=== PATIENT | male | born 1945 | race Caucasian/White ===

== ENCOUNTER → 2019-08-09 | Outpatient (CLI) | payer MEDICARE | END | disposition home or self-care (01) | LOC: PLD 11:46 → LAB SHORT 11:46 | DX: D48.5 Neoplasm of uncertain behavior of skin (principal) | CPT/HCPCS: 88305 ==

== ENCOUNTER 2019-11-26 12:50 | Inpatient (IN) | payer OTHER, MEDICARE ==
[~2019-11-26] VITALS: Ht 177.8 cm; Wt 95.2 kg
[2019-11-26 13:56] LABS: BASOPHILS ABSOLUTE AUTO 0.04 K/mm3 (0.00-0.23); BASOPHILS PERCENT AUTO 0 % (0-2); EOSINOPHILS ABSOLUTE AUTO 0.03 K/mm3 (0.00-0.68); EOSINOPHILS PERCENT AUTO 0 % (0-6); Hematocrit 33.7 % (37.0-53.0); Hemoglobin 11.2 g/dL (13.5-17.5); IMMATURE GRAN ABSOLUTE AUTO 0.27 K/mm3 (0.00-0.10); IMMATURE GRAN PERCENT AUTO 1 % (0-1); LYMPHOCYTES ABSOLUTE AUTO 0.34 K/mm3 (0.84-5.20); LYMPHOCYTES PERCENT AUTO 2 % (21-46); MONOCYTES ABSOLUTE AUTO 1.05 K/mm3 (0.16-1.47); MONOCYTES PERCENT AUTO 5 % (4-13); Mean Corpuscular HGB 32.6 pg (26.0-34.0); Mean Corpuscular HGB Conc 33.2 g/dL (31.5-36.5); Mean Corpuscular Volume 98 fL (80-100); Mean Platelet Volume 10.5 fL (9.1-12.4); NEUTROPHILS ABSOLUTE AUTO 19.68 K/mm3 (1.96-9.15); NEUTROPHILS PERCENT AUTO 92 % (41-73); Platelet Count 181 K/mm3 (150-400); RDW Coefficient Variation 15.6 % (11.7-14.2); RDW Standard Deviation 56.8 fL (35.1-46.3); Red Blood Cell Count 3.44 M/mm3 (4.30-5.90); White Blood Cell Count 21.41 K/mm3 (4.00-11.30)
[2019-11-26 14:12] LABS: Albumin, Blood 3.9 g/dL (3.4-5.0); Albumin/Globulin Ratio 0.7 (0.8-1.8); Bilirubin, Total 0.6 mg/dL (0.1-1.0); Bun/Creatinine Ratio 14.1 (12.0-20.0); Creatinine, Blood 3.83 mg/dL (0.60-1.20); Globulin, Blood 5.4 g/dL (2.2-4.0); Potassium, Blood 4.4 mmol/L (3.5-5.5); Total Protein, Blood 9.3 g/dL (6.4-8.2)
[2019-11-26 14:36] LABS: Source, Urine Clean Catch
[2019-11-26 14:49] LABS: Appearance, Urine Hazy (Clear); Bilirubin, Urine Neg (Neg); Blood, Urine 3+ (Neg); Color, Urine Yellow (P-Yellow); Glucose Qualitative, Urine Neg (Neg); Ketones, Urine Neg (Neg); Leukocyte Esterase, Urine 1+ (Neg); Nitrite, Urine Neg (Neg); Protein, Urine 3+ (Neg); Urobilinogen, Urine NORM (Normal)
[2019-11-26 15:11] LABS: Amorphous Light (0-Heavy); Bacteria Mod /hpf; Hyaline Casts 0-2 /lpf (0-2); Squamous Epithelial Cells Few /hpf (Few)
[2019-11-26] MEDS ORDERED: AMLODIPINE BESY10 MG PO (15:27)
[2019-11-26] MEDS ORDERED: Paxil20 MG PO (15:28)
[2019-11-26 15:29] LABS: Influenza A Negative (NEGATIVE); Influenza B Negative (NEGATIVE)
[2019-11-26] MEDS ORDERED: ATOR40TA PO (15:53)
[2019-11-26] MEDS ORDERED: LISI20 PO (15:53)
[2019-11-26] MEDS ORDERED: LAMO100 PO (15:54)
[2019-11-26] MEDS ORDERED: GABA300 PO (15:54)
[2019-11-26] MEDS ORDERED: BENADRYL25 MG PO (15:55)
[2019-11-26] MEDS ORDERED: [UNRECOGNIZED DRUG - REMARK] PO (15:55)
--- NOTE | 2019-11-27 03:44 | NUR ---
RECEIVED CALL FROM LAB STATING BLOOD CULTURES POSITIVE FOR GRAM + COCCI IN CHAINS. CALL PLACED TO LAB TO VERIFY ADEQUATE ANTIBIOTIC COVERAGE. SPOKE WITH PHARMACIST EBER WHO STATED ROCEPHIN IS SUFFICIENT FOR NOW UNTIL MD'S REVIEW IN THE AM.
[2019-11-27 05:14] LABS: Hematocrit 27.9 % (37.0-53.0); Hemoglobin 9.4 g/dL (13.5-17.5); Mean Corpuscular HGB Conc 33.7 g/dL (31.5-36.5); Mean Corpuscular Volume 98 fL (80-100); Mean Platelet Volume 10.6 fL (9.1-12.4); Platelet Count 151 K/mm3 (150-400); RDW Coefficient Variation 15.7 % (11.7-14.2); RDW Standard Deviation 56.5 fL (35.1-46.3); Red Blood Cell Count 2.85 M/mm3 (4.30-5.90); White Blood Cell Count 16.17 K/mm3 (4.00-11.30)
[2019-11-27 05:30] LABS: Bun/Creatinine Ratio 15.5 (12.0-20.0); Calcium, Blood 8.4 mg/dL (8.5-10.1); Creatinine, Blood 3.16 mg/dL (0.60-1.20); Potassium, Blood 4.2 mmol/L (3.5-5.5)
--- NOTE | 2019-11-27 05:56 | NUR ---
SHIFT SUMMARY: FEBRILE TEMP DOWN TO 100.4 FROM 102 AFTER TYLENOL, ICE WATER, AND ICE PACK TO NECK. REPORTS LESS TREMORING BUT CONTINUED GENERALIZED WEAKNESS. HAVING DIFFICULTY BRINGING WATER TO MOUTH AND MANAGING PLACEMENT OF URINAL INDEPENDENTLY. PAIN TO BACK, NECK, AND KNEE RESPONDING WELL TO PRN FENTANYL. STATES PT'S VERBALIZATIONS ARE SOMETIMES NON-SENSICAL- NOT HIS BASELINE. WILL CONT TO MONITOR.
--- NOTE | 2019-11-27 13:14 | NUR ---
Patient and patient's gave permission for care tomorrow.
--- NOTE | 2019-11-27 18:29 | NUR ---
SHIFT SUMMARY- PT ALERT AND ORIENTED TO SELF AND FAMILY. PT OCCASSIONALLY SPEAKS IN NON-SENSICAL SPEACH PATTERNS. PT SAT AT THE EOB WITH OT AND RN THEN HE TIPPED TO THE LEFT AND SAID HE WILL STAND UP WHEN HE WAS READY BUT HE "NEEDED TO TAKE HIS TIME AND GO SLOW." PT REMAINED IN THAT POSITION FOR THE NEXT SEVERAL MINUTES SAYING "YOU SEE I FEEL LIKE I SHOULD BE ABLE TO CONTROL MYSELF BUT I DON'T HAVE CONTROL." PT SEEMED TO BE HAVING LEFT SIDED WEAKNESS INCLUDING THE TRUNK MUSCLES. PT HAS HAD PAIN T/O THE DAY. HOME DOSE OF GABAPENTIN AND TRAMADOL WERE ORDERED AND DOSE WAS ADJUSTED FOR THE PT RENAL FUNCTION. ICE HAS BEEN APPLIED TO THE PT LOWER BACK SEVERAL TIMES AND IT SEEMS TO BE HELPING. PT HAS RUN A LOW GRADE TEMP THAT WAS REDUCED TO 100.1 WITH TYLENOL AND BLANKET REMOVAL. SPOKE TO DR CAMARILLO ABOUT SOME BRUISES ON THE PT INNER THIGH THAT WERE NOT NOTED ON THE ASSESSMENT THIS MORNING, THE BRUISES ARE FAINT AND THE PT SPOUSE DENIES ANY FALL AT HOME. A SMALL BRUISE LATER NOTED ON THE OUTSIDE OF THE PT RIGHT THIGH WELL. PER DR AYON BRUISES (LIGHT IN COLOR BUT VISIBLE) WERE OUTLINED IN MARKER SO THAT STAFF CAN MONITOR THEM FOR CHANGE IN SIZE OR COLOR. PT SPOUSE IS VERY INVOLVED IN HIS CARE AND HAS ACCESS TO ALL OF HIS CLINICAL TRIAL INFORMATION WELL HIS [facility] MEDICAL RECORDS. PT CURRENTLY ADMITTED FOR A UTI. SPOUSE ASKS QUESTIONS AND ASSISTS THE PT WITH THE URINAL. SPOUSE IS AT THE BEDSIDE ROUND THE CLOCK.
[2019-11-28 05:50] LABS: BASOPHILS ABSOLUTE AUTO 0.05 K/mm3 (0.00-0.23); BASOPHILS PERCENT AUTO 0 % (0-2); Hematocrit 31.2 % (37.0-53.0); Hemoglobin 10.1 g/dL (13.5-17.5); LYMPHOCYTES ABSOLUTE AUTO 0.87 K/mm3 (0.84-5.20); LYMPHOCYTES PERCENT AUTO 7 % (21-46); MONOCYTES ABSOLUTE AUTO 0.95 K/mm3 (0.16-1.47); MONOCYTES PERCENT AUTO 8 % (4-13); Mean Corpuscular HGB 31.9 pg (26.0-34.0); Mean Corpuscular HGB Conc 32.4 g/dL (31.5-36.5); Mean Corpuscular Volume 98 fL (80-100); Mean Platelet Volume 10.4 fL (9.1-12.4); Platelet Count 167 K/mm3 (150-400); RDW Coefficient Variation 15.6 % (11.7-14.2); RDW Standard Deviation 56.8 fL (35.1-46.3); Red Blood Cell Count 3.17 M/mm3 (4.30-5.90); White Blood Cell Count 12.36 K/mm3 (4.00-11.30)
[2019-11-28 05:53] LABS: EOSINOPHILS ABSOLUTE AUTO 0.06 K/mm3 (0.00-0.68); EOSINOPHILS PERCENT AUTO 1 % (0-6); IMMATURE GRAN ABSOLUTE AUTO 0.04 K/mm3 (0.00-0.10); IMMATURE GRAN PERCENT AUTO 0 % (0-1); NEUTROPHILS ABSOLUTE AUTO 10.39 K/mm3 (1.96-9.15); NEUTROPHILS PERCENT AUTO 84 % (41-73)
[2019-11-28 06:13] LABS: Albumin, Blood 3.5 g/dL (3.4-5.0); Anion Gap 5 mmol/L (6-16); Blood Urea Nitrogen 34 mg/dL (8-24); Bun/Creatinine Ratio 14.5 (12.0-20.0); CO2, Blood 24 mmol/L (21-32); Chloride, Blood 109 mmol/L (98-108); Creatinine, Blood 2.34 mg/dL (0.60-1.20); Glomerular Filtration Rate 29 (60-); Glucose, Blood 92 mg/dL (70-99); Phosphorus, Blood 2.4 mg/dL (2.5-4.9); Potassium, Blood 3.9 mmol/L (3.5-5.5); Sodium, Blood 138 mmol/L (136-145); Vancomycin, Random 10.2 ug/mL
--- NOTE | 2019-11-28 07:33 | NUR ---
SHIFT SUMMARY PATIENT RECEIVED TWO DOSES OF PRN PAIN MEDICATION OVERNIGHT ACCORDING TO HIS EMAR. MEDICATED FOR FEVER WELL. ALL PRN MEDICATION GIVEN WAS EFFECTIVE. IV PATENT AND FLUSHED. BED IN LOWEST POSITION WITH WHEELS LOCKED. CALL LIGHT WITHIN REACH. ROOMING IN. REPORT GIVEN TO ONCOMING RN.
--- NOTE | 2019-11-28 18:22 | NUR ---
SUMMARY: NO ACUTE CHANGE TODAY. VSS, PT ORIENTED AT TIMES, TENDS TO BE FORGETFUL YET PLEASENT. BED ALARM ON FOR SAFETY. PT MOBILITY GETTING BETTER, ABLE TO GET UP WITH 1 ASSIST TO CHAIR WITH PHYSICAL THERAPY. REPORTED MINIMAL PAIN, TELE WNL. NO S/SX OF SEPSIS. NO SAFETY CONCERNS AT THIS TIME.
[2019-11-29 05:41] LABS: Hematocrit 28.8 % (37.0-53.0); Hemoglobin 9.4 g/dL (13.5-17.5); Mean Corpuscular HGB 31.9 pg (26.0-34.0); Mean Corpuscular HGB Conc 32.6 g/dL (31.5-36.5); Mean Corpuscular Volume 98 fL (80-100); Mean Platelet Volume 10.1 fL (9.1-12.4); Platelet Count 155 K/mm3 (150-400); RDW Coefficient Variation 15.3 % (11.7-14.2); RDW Standard Deviation 54.9 fL (35.1-46.3); Red Blood Cell Count 2.95 M/mm3 (4.30-5.90); White Blood Cell Count 10.39 K/mm3 (4.00-11.30)
[2019-11-29 06:03] LABS: Albumin, Blood 3.2 g/dL (3.4-5.0); Anion Gap 7 mmol/L (6-16); Blood Urea Nitrogen 29 mg/dL (8-24); Bun/Creatinine Ratio 16.6 (12.0-20.0); CO2, Blood 23 mmol/L (21-32); Calcium, Blood 8.5 mg/dL (8.5-10.1); Chloride, Blood 111 mmol/L (98-108); Creatinine, Blood 1.75 mg/dL (0.60-1.20); Glomerular Filtration Rate 41 (60-); Glucose, Blood 110 mg/dL (70-99); Phosphorus, Blood 2.6 mg/dL (2.5-4.9); Potassium, Blood 3.7 mmol/L (3.5-5.5); Sodium, Blood 141 mmol/L (136-145)
--- NOTE | 2019-11-29 06:10 | NUR ---
EOS: PATIENT AO4 BUT CONFUSED AT TIMES, BUT WAS EASILY REDIRECTED. HE RECEIVED PAIN MEDS FOR BACK PAIN PER EMAR. PT WAS PLEASANT AND COOPERATIVE WITH CARE.
--- NOTE | 2019-11-29 18:46 | NUR ---
SHIFT SUMMARY PATIENT MEDICATED SEVRAL TIMES FOR PAIN AND ONCE FOR NAUSEA THIS SHIFT. DENIES SHORTNESS OF BREATH. PATIENT IS EXREMELY PAINFUL WHEN MOVED. PATIENT WORKED WITH PT/OT TODAY AND DID WALK IN [place] WITH FWW. PATIENT UP IN CHAIR IN THE MORNING. PATIENT MEDICATED X1 FOR FEVER. FAMILY AT BEDSIDE. CALL LIGHT IN REACH.
--- NOTE | 2019-11-30 05:24 | NUR ---
SHIFT SUMMARY PT IS A 74 Y/O MALE, ADMITTED WITH SEPSIS POSSIBLY R/T A UTI, WITH A HX OF STAGE 4 CA. HE IS A&O X 2-3, THOUGH HAD PERIODS OF INCREASED CONFUSION/AMS AND HALLUCINATIONS PER THE , WHO REMAINED AT BEDSIDE. THE PT HAD A DIFFICULT TIME REMAINING COMFORTABLE. HE WAS MEDICATED WITH TYLENOL X 2 FOR PAIN AND FEVER, WELL ULTRAM, GABAPENTIN AND FENTANYL ONCE EACH. PT STILL ONLY SLEPT FITFULLY ON AND OFF FOR SHORT AMOUNTS OF TIME DURING THE NIGHT. PT COMPLAINED OF PAIN IN HIS NECK AND BOTH SHOULDERS, COLD PACKS WERE ALSO USED FOR ATTEMPTED PAIN CONTROL. NO COMPLAINTS OF SOB OR NAUSEA. PT DID HAVE AN ELEVATED TEMPERATURE, 100.3-101.0, AND BP WAS SLIGHTLY ELEVATED IN THE 160S SYSTOLICALLY. VITALS OTHERWISE STABLE. TELE MONITOR SHOWED NSR C BBC IN THE 90S. PT RECEIVED NS @ 100 ML/HR THROUGH THE NIGHT. NO OTHER ACUTE CHANGES IN PT CONDITION NOTED. WILL CONTINUE TO MONITOR AND TREAT PER EMAR UNTIL HAND OFF TO DAY SHIFT RN.
[2019-11-30 05:33] LABS: BASOPHILS ABSOLUTE AUTO 0.02 K/mm3 (0.00-0.23); BASOPHILS PERCENT AUTO 0 % (0-2); EOSINOPHILS ABSOLUTE AUTO 0.01 K/mm3 (0.00-0.68); EOSINOPHILS PERCENT AUTO 0 % (0-6); Hematocrit 26.4 % (37.0-53.0); Hemoglobin 8.6 g/dL (13.5-17.5); IMMATURE GRAN ABSOLUTE AUTO 0.07 K/mm3 (0.00-0.10); IMMATURE GRAN PERCENT AUTO 1 % (0-1); LYMPHOCYTES ABSOLUTE AUTO 0.66 K/mm3 (0.84-5.20); LYMPHOCYTES PERCENT AUTO 6 % (21-46); MONOCYTES ABSOLUTE AUTO 1.41 K/mm3 (0.16-1.47); MONOCYTES PERCENT AUTO 12 % (4-13); Mean Corpuscular HGB 31.7 pg (26.0-34.0); Mean Corpuscular HGB Conc 32.6 g/dL (31.5-36.5); Mean Corpuscular Volume 97 fL (80-100); Mean Platelet Volume 10.1 fL (9.1-12.4); NEUTROPHILS PERCENT AUTO 81 % (41-73); Platelet Count 154 K/mm3 (150-400); RDW Coefficient Variation 15.4 % (11.7-14.2); RDW Standard Deviation 54.8 fL (35.1-46.3); Red Blood Cell Count 2.71 M/mm3 (4.30-5.90); White Blood Cell Count 11.37 K/mm3 (4.00-11.30)
[2019-11-30 06:01] LABS: Anion Gap 8 mmol/L (6-16); Blood Urea Nitrogen 24 mg/dL (8-24); Bun/Creatinine Ratio 14.8 (12.0-20.0); CO2, Blood 21 mmol/L (21-32); Calcium, Blood 8.2 mg/dL (8.5-10.1); Chloride, Blood 109 mmol/L (98-108); Creatinine, Blood 1.62 mg/dL (0.60-1.20); Glomerular Filtration Rate 44 (60-); Glucose, Blood 125 mg/dL (70-99); Phosphorus, Blood 2.4 mg/dL (2.5-4.9); Potassium, Blood 3.8 mmol/L (3.5-5.5); Sodium, Blood 138 mmol/L (136-145)
--- NOTE | 2019-11-30 14:00 | NUR ---
Clinical Visit: Spoke with the pt's , Karen. She is at bedside, along with pt's other family members. She reports that the pt possibly has an advance directive with the [facility]. He does not have a POLST form. She is aware of the document and the purpose of the document. She accepts the form and would like to look at it. Pt is resting in the chair. He does not wake up during my visit. Karen expresses concern over his condition. Reports that she had made him a FULL code status on admission to the hospital because she wanted a chance for all the children to be able to see him before he . She states that "most of them have already made it." She states that her wish is to have him resusitated at this time, but knows that it is expected since he is so sick and has stage IV cancer. Instructed that the pt's code status could be changed, if that is what she would like, but she declines at this time. Encouraged to inform nursing when she is ready to make pt DNR/DNI. She has no other concerns or questions at this time. Will follow up with pt and family tomorrow.
--- NOTE | 2019-11-30 17:11 | NUR ---
SHIFT SUMMARY PATIENT MEDICATED FREQUENTLY FOR PAIN TODAY WITH DIFFICULTY CONTROLING HIS PAIN. PATIENT UP IN RECLINER MOST OF DAY. PATIENT HAS POOR APPETITE. PATIENT GIVEN TYLENOL X2 FOR FEVER THIS SHIFT. PATIENT DENIES NAUSEA AND SHORTNESS OF PATIENT CONTINUES TO BE CONFUSED. FAMILY AT BEDSIDE. CALL LIGHT IN REACH.
--- NOTE | 2019-11-30 22:34 | NUR ---
PT CHANGE IN CONDITION THIS PM, PT IS MORE LETHARGIC AND AMS COMPARED TO PREVIOUS NIGHT, SKIN IS HOT TO TOUCH, AND IS STILL SPIKING FEVERS. PT'S ALSO NOTED THAT HE SEEMS TO BE "GOING [place]", AND THAT HE IS "WORSE" THAN HE WAS THE PREVIOUS DAY. THE PT ALSO APPEARED TO STILL BE IN SEVERE PAIN EVEN AFTER RECEIVING IV PAIN MEDICATION, GRIMACING AND TENSE. PT'S BP, HR AND RR WERE ALL ELEVATED AT PM VITALS. PT IS STILL FULL CODE, PT'S STATES THAT SHE IS WAITING FOR FAMILY TO ARRIVE FROM OUT OF STATE BEFORE SHE MAKES ANY DECISIONS REGARDING CHANGING CODE STATUS. THE CHARGE NURSE WAS CONSULTED ON PT CONDITION, AND THE HOSPITALIST MANJIT JIANG WAS CONSULTED, AND SHE AGREED TO COME LOOK AT THE PATIENT. AFTER SPEAKING WITH THE PT AND HIS , IV FENTANYL WAS INCREASED TO 50-100 MCG Q2H, AND PO LIQUID ROXICODONE WAS ADDED. NO OTHER CHANGES IN ORDERS AT THIS TIME. PT'S BEDTIME PO MEDS WERE HELD, PT WAS NOT AWARE ENOUGH TO SWALLOW SAFELY AND THE PT'S STATED THAT HE HAD BEEN HAVING TROUBLE SWALLOWING ICE CHIPS/WATER. WILL CONTINUE TO MONITOR.
[2019-12-01 05:26] LABS: BASOPHILS ABSOLUTE AUTO 0.03 K/mm3 (0.00-0.23); BASOPHILS PERCENT AUTO 0 % (0-2); EOSINOPHILS PERCENT AUTO 0 % (0-6); Hematocrit 26.8 % (37.0-53.0); IMMATURE GRAN ABSOLUTE AUTO 0.12 K/mm3 (0.00-0.10); IMMATURE GRAN PERCENT AUTO 1 % (0-1); LYMPHOCYTES ABSOLUTE AUTO 0.67 K/mm3 (0.84-5.20); LYMPHOCYTES PERCENT AUTO 4 % (21-46); MONOCYTES ABSOLUTE AUTO 1.18 K/mm3 (0.16-1.47); MONOCYTES PERCENT AUTO 7 % (4-13); Mean Corpuscular HGB 32.4 pg (26.0-34.0); Mean Corpuscular HGB Conc 33.6 g/dL (31.5-36.5); Mean Corpuscular Volume 96 fL (80-100); Mean Platelet Volume 10.1 fL (9.1-12.4); NEUTROPHILS ABSOLUTE AUTO 13.94 K/mm3 (1.96-9.15); NEUTROPHILS PERCENT AUTO 87 % (41-73); Platelet Count 191 K/mm3 (150-400); RDW Coefficient Variation 15.4 % (11.7-14.2); RDW Standard Deviation 54.8 fL (35.1-46.3); Red Blood Cell Count 2.78 M/mm3 (4.30-5.90); White Blood Cell Count 15.94 K/mm3 (4.00-11.30)
[2019-12-01 05:59] LABS: Albumin, Blood 2.8 g/dL (3.4-5.0); Anion Gap 7 mmol/L (6-16); Blood Urea Nitrogen 25 mg/dL (8-24); Bun/Creatinine Ratio 14.1 (12.0-20.0); CO2, Blood 21 mmol/L (21-32); Chloride, Blood 112 mmol/L (98-108); Creatinine, Blood 1.77 mg/dL (0.60-1.20); Glomerular Filtration Rate 40 (60-); Glucose, Blood 120 mg/dL (70-99); Phosphorus, Blood 2.6 mg/dL (2.5-4.9); Potassium, Blood 3.9 mmol/L (3.5-5.5); Sodium, Blood 140 mmol/L (136-145)
--- NOTE | 2019-12-01 06:06 | NUR ---
SHIFT SUMMARY PT IS A 74 Y/O MALE, ADMITTED FOR SEPSIS. PT HAS A HX OF STAGE 4 CA. PT IS MORE CONFUSED/AMS TONIGHT COMPARED TO PREVIOUS [employer]ER, A&O X 1-2, AND WAS MORE LETHARGIC COMPARED TO PREVIOUS NIGHT (SEE PREVIOUS NOTE). PT SPIKED FEVERS DURING THE NIGHT, UP TO 102.9 AXILLARY. PT WAS HAVING DIFFICULTY SWALLOWING DURING THE NIGHT, PER PT WAS CHOKING SLIGHTLY ON ICE CHIPS. PM MEDS HELD. AFTER CONSULTING HOSPITALIST DR CARTER, PO TYLENOL WAS CHANGED TO UT. PT'S TEMPERATURE CAME DOWN FROM 102.8 TO 98.6 ON SECOND RECHECK. BP, HR AND RR WERE ALL ELEVATED. PER TELE MONITOR, PT RAN NSR-ST IN THE 95-105. PT WAS MEDICATED WITH FENTANYL AND PO ROXICODONE FOR PAIN, WHICH WORKED WELL IN COMBINATION TO CONTROL PAIN. REMAINED IN THE ROOM AT BEDSIDE. NO OTHER ACUTE CHANGES IN PT CONDITION NOTED. WILL CONTINUE TO MONITOR AND TREAT PER EMAR UNTIL HAND OFF TO DAY SHIFT RN.
--- NOTE | 2019-12-01 16:19 | NUR ---
SHIFT SUMMARY PATIENT UP ONE ASSIST W/FWW TO BATHROOM TODAY. UP IN RECLINER THIS SHIFT. PATIENT CONFUSED BUT ALERT IN THE MORNING, SLEEPING MOST OF AFTERNOON. FAMILY AT BEDSIDE. PATIENT HAD XRAY OF NECK TODAY. ANTICIPATING SNF DISCHARGE TOMORROW. CALL LIGHT IN REACH.
--- NOTE | 2019-12-01 19:36 | NUR ---
Clinical Visit: Pt is resting in his recliner at time of visit. He occassionally grimmaces in his sleep. , Karen, is at bedside and states that he has been grimmacing like that, but it is not frequent. She has been watching him and states that she would request pain medication for him if she believed he was in pain. Karen reports that all of the family has now made it to come see him, they have seven children together and many grandchildren and great grandchildren. Listened as Karen shared their 40 year marriage history. She says that he is a very kind man and has been very good to her. She is tearful as she talks about him. She reports that she knows that he will come to the end of his life. She expresses concern over living without him after he passes. Therapeutic time spent with her. Encouraged self care. She has been spending the night with the pt here at the hospital, but she states that with so much family here in town, she may ask one of them to stay with him while she goes home to rest. Updated nurse, Leyla. Will follow up with this pt tomorrow.
[2019-12-02 10:56] LABS: BASOPHILS ABSOLUTE AUTO 0.04 K/mm3 (0.00-0.23); BASOPHILS PERCENT AUTO 0 % (0-2); EOSINOPHILS ABSOLUTE AUTO 0.02 K/mm3 (0.00-0.68); EOSINOPHILS PERCENT AUTO 0 % (0-6); Hemoglobin 8.7 g/dL (13.5-17.5); IMMATURE GRAN ABSOLUTE AUTO 0.09 K/mm3 (0.00-0.10); IMMATURE GRAN PERCENT AUTO 1 % (0-1); LYMPHOCYTES PERCENT AUTO 5 % (21-46); MONOCYTES ABSOLUTE AUTO 0.97 K/mm3 (0.16-1.47); MONOCYTES PERCENT AUTO 6 % (4-13); Mean Corpuscular HGB 32.3 pg (26.0-34.0); Mean Corpuscular HGB Conc 32.2 g/dL (31.5-36.5); Mean Platelet Volume 9.6 fL (9.1-12.4); NEUTROPHILS PERCENT AUTO 88 % (41-73); Platelet Count 229 K/mm3 (150-400); RDW Coefficient Variation 15.9 % (11.7-14.2); RDW Standard Deviation 58.4 fL (35.1-46.3); Red Blood Cell Count 2.69 M/mm3 (4.30-5.90); White Blood Cell Count 15.12 K/mm3 (4.00-11.30)
[2019-12-02 11:01] LABS: Mean Corpuscular Volume 100 fL (80-100)
[2019-12-02 11:28] LABS: Bun/Creatinine Ratio 17.4 (12.0-20.0); Calcium, Blood 7.8 mg/dL (8.5-10.1); Creatinine, Blood 1.95 mg/dL (0.60-1.20); Potassium, Blood 3.7 mmol/L (3.5-5.5)
--- NOTE | 2019-12-02 13:15 | NUR ---
DISCHARGE PT IS [facility], GOING TO ROOM 7112. ATTEMPTED TO CALL REPORT TO MALAIKA STEPHENS, SHE WAS NOT AVAILABLE, MALAIKA RETURN CALL.
== END 2019-12-02 13:15 | disposition short-term general hospital (02) | DRG 871 ==
LOC: ER 12:50 → MEDS 15:27
PROVIDERS: Emergency Medicine; Internal Medicine; ADMIT Internal Medicine
DX: A40.1 Sepsis due to streptococcus, group B (principal); G06.2 Extradural and subdural abscess, unspecified; N17.9 Acute kidney failure, unspecified; N18.4 Chronic kidney disease, stage 4 (severe); E87.1 Hypo-osmolality and hyponatremia; N39.0 Urinary tract infection, site not specified; C78.7 Secondary malignant neoplasm of liver and intrahepatic bile duct; C78.00 Secondary malignant neoplasm of unspecified lung; J98.11 Atelectasis; C43.9 Malignant melanoma of skin, unspecified; I12.9 Hypertensive chronic kidney disease with stage 1 through stage 4 chronic kidney disease, or unspecified chronic kidney disease; E86.0 Dehydration; G89.29 Other chronic pain; R13.10 Dysphagia, unspecified; E78.5 Hyperlipidemia, unspecified; K59.00 Constipation, unspecified; Z87.891 Personal history of nicotine dependence; M54.9 Dorsalgia, unspecified; M75.102 Unspecified rotator cuff tear or rupture of left shoulder, not specified as traumatic; M50.30 Other cervical disc degeneration, unspecified cervical region
CPT/HCPCS: 36415; 51701; 71045; 71046; 72040; 73562-RT; 76770; 80048; 80053; 80069; 80202; 81001; 82570; 83605; 83690; 84145; 84300; 85025; 85027; 87040; 87086; 87147; 87804; 92610; 93306; 96361-59; 96365-59; 96375-59; 97110; 97116; 97162; 97166; 97530; 99285-25; A9270; A9270-GY; J0456; J0696; J1644; J1956; J2405; J3010; J3370; J7030; J7050; J7120